=== PATIENT | female | born 1985 | race Caucasian/White ===

== ENCOUNTER 2017-11-02 08:32 | Emergency (ER) | payer MEDICAID ==
[~2017-11-02] VITALS: Ht 170.2 cm; Wt 137.0 kg
[2017-11-02] MEDS ORDERED: FAMOTIDINE 20MG/2ML VIAL IV STA (09:25)
[2017-11-02] MEDS ORDERED: ONDANSETRON HCL 4MG/2ML VIAL IV STA (09:25)
[2017-11-02 09:32] VITALS: BP 149/90
[2017-11-02 09:44] LABS: BASOPHILS % 0.5 % (0.0-2.0); HEMATOCRIT. 39.9 % (36.0-48.0); HEMOGLOBIN. 14.1 g/dL (12.0-16.0); LYMPHOCYTES % 11.2 % (20.0-50.0); MEAN CORPUSCULAR HEMOGLOBIN 31.3 pg (28.0-32.0); MEAN CORPUSCULAR VOLUME 88.4 fL (81.0-99.0); MEAN PLATELET VOLUME 7.5 fl (7.4-10.4); NEUTROPHILS % 85.3 % (40.0-76.0); PLATELET 366 x1000/uL (130-400); RED BLOOD CELL COUNT 4.51 mill/uL (4.2-5.4)
[2017-11-02 09:45] LABS: CHLORIDE 100 mEq/L (98-107)
== END 2017-11-02 11:50 | disposition home or self-care (01) ==
LOC: ER 09:24
DX: R10.12 Left upper quadrant pain (principal); R03.0 Elevated blood-pressure reading, without diagnosis of hypertension; D68.51 Activated protein C resistance; J45.909 Unspecified asthma, uncomplicated
CPT/HCPCS: 36415; 80053; 83690; 85025; 96374; 96375; 99284; J2405; J3490; Z7610